=== PATIENT | female | born 1995 | race Caucasian/White ===

== ENCOUNTER 2019-03-13 07:29 | Inpatient (IN) | payer OTHER ==
[~2019-03-13] VITALS: Ht 170.2 cm; Wt 64.9 kg
[2019-03-13] MEDS ORDERED: PRENATAL MULTI1 EAC3 PO (15:57)
== END 2019-03-15 11:45 | disposition home or self-care (01) | DRG 807 ==
LOC: OB/GYN 07:29 → LDR 07:29 → OB/GYN 16:30
PROVIDERS: ADMIT Specialist
PROC: 10E0XZZ Delivery of Products of Conception, External Approach (ICD-10-PCS; principal; 2019-03-13)
PROC: 10907ZC Drainage of Amniotic Fluid, Therapeutic from Products of Conception, Via Natural or Artificial Opening (ICD-10-PCS; 2019-03-13)
PROC: 3E033VJ Introduction of Other Hormone into Peripheral Vein, Percutaneous Approach (ICD-10-PCS; 2019-03-13)
PROC: 4A1HXCZ Monitoring of Products of Conception, Cardiac Rate, External Approach (ICD-10-PCS; 2019-03-13)
DX: O80 Encounter for full-term uncomplicated delivery (principal); Z37.0 Single live birth; Z3A.39 39 weeks gestation of pregnancy

== ENCOUNTER 2021-10-06 13:38 | Outpatient (CLI) | payer OTHER ==
[~2021-10-06 13:38] MED LIST: PRENATAL MULTI1 EAC3 PO
== END 2021-10-06 13:40 | disposition home or self-care (01) ==
LOC: LAB 13:38
PROVIDERS: ATTEND Specialist
DX: Z34.80 Encounter for supervision of other normal pregnancy, unspecified trimester (principal)

== ENCOUNTER 2021-10-26 11:04 | Inpatient (IN) | payer OTHER ==
[~2021-10-26] VITALS: Ht 157.5 cm; Wt 63.5 kg
== END 2021-10-28 14:23 | disposition home or self-care (01) | DRG 807 ==
LOC: LDR 11:04 → OB/GYN 11:04
PROVIDERS: ADMIT Specialist; ATTEND Specialist
PROC: 10E0XZZ Delivery of Products of Conception, External Approach (ICD-10-PCS; principal; 2021-10-26)
PROC: 4A1HXCZ Monitoring of Products of Conception, Cardiac Rate, External Approach (ICD-10-PCS; 2021-10-26)
DX: O99.820 Streptococcus B carrier state complicating pregnancy (principal); Z3A.38 38 weeks gestation of pregnancy; Z37.0 Single live birth; Z20.822 Contact with and (suspected) exposure to COVID-19

== ENCOUNTER 2024-10-20 13:35 | Outpatient (CLI) | payer OTHER ==
[2024-10-20 13:12] VITALS: BP 126/78
[2024-10-20] MEDS ORDERED: RINGERS SOLUTION,LACTATED 1,000 ML IV SCH (14:00)
[2024-10-20 14:30] LABS: URINE APPEARANCE Turbid; URINE BILIRRUBIN Negative (NEGATIVE); URINE BLOOD NHT; URINE COLOR Yellow; URINE GLUCOSE Negative (NEGATIVE); URINE KETONE Negative (NEGATIVE); URINE LEUKOCYTE Negative; URINE NITRATE Negative; URINE PROTEIN Negative (NEGATIVE); URINE UROBILINOGEN 1.0 E.U./dl
[2024-10-20 14:31] LABS: URINE BACTERIA 73.1 uL (0.0-1933); URINE EPITHELIAL CELLS 9.8 uL (0.0-38.8); URINE RBC 49.1 uL (0.0-20.8); URINE WBC 10.5 uL (0.0-23.2)
[2024-10-20 14:35] LABS: BASO % 0.2 % (0.1-1.2); EOS # 0.15 (0.04-0.54); EOS % 1.8 % (0.7-7.0); LYMPH # 1.28 (1.18-3.74); LYMPH % 15.5 % (19.3-53.1); MEAN PLATELET VOLUME 10.40 fl (9.4-12.4); MONO # 0.61 (0.24-0.82); MONO % 7.4 % (4.7-12.5); NEUT # 6.18 (1.56-6.13); NEUT % 74.7 % (34.0-71.1); RED CELL DISTRIBUTION WIDTH 13.3 % (11.6-14.4); URINE CAST 0.00 uL (0.0-1.40)
[2024-10-20 14:49] LABS: INR < 0.93
[2024-10-20 15:24] VITALS: BP 123/75
[2024-10-20 19:33] VITALS: BP 112/64
[2024-10-20 23:20] VITALS: BP 119/67; O2SAT 98
[2024-10-21 03:09] VITALS: BP 113/64; O2SAT 96
[2024-10-21 07:39] VITALS: BP 112/71; O2SAT 97
[2024-10-21 10:46] VITALS: BP 112/71
== END 2024-10-21 10:51 | disposition home or self-care (01) ==
LOC: OBS/DEL 13:35
PROVIDERS: Obstetrics & Gynecology; ATTEND Specialist
DX: O26.893 Other specified pregnancy related conditions, third trimester (principal); N93.0 Postcoital and contact bleeding; O44.00 Complete placenta previa NOS or without hemorrhage, unspecified trimester; O36.8199 Decreased fetal movements, unspecified trimester, other fetus; O26.859 Spotting complicating pregnancy, unspecified trimester; Z3A.29 29 weeks gestation of pregnancy

== ENCOUNTER 2024-12-02 22:10 | Inpatient (IN) | payer OTHER ==
[~2024-12-02] VITALS: Ht 167.6 cm; Wt 59.9 kg
[2024-12-02 22:10] VITALS: BP 116/76
[2024-12-02] MEDS ORDERED: AMPICILLIN SODIUM 2,000 MG VIAL IV ONE (22:15)
[2024-12-02] MEDS ORDERED: BETAMETHASONE ACETATE,SOD PHOS 30 MG/5 ML ML IM ONE (22:15)
[2024-12-02] MEDS ORDERED: RINGERS SOLUTION,LACTATED 1,000 ML IV SCH (22:15)
[2024-12-02 23:19] VITALS: BP 123/78
[2024-12-02 23:53] LABS: BASO % 0.3 % (0.1-1.2); EOS # 0.12 (0.04-0.54); EOS % 1.3 % (0.7-7.0); LYMPH # 1.66 (1.18-3.74); LYMPH % 17.7 % (19.3-53.1); MEAN PLATELET VOLUME 10.90 fl (9.4-12.4); MONO # 0.60 (0.24-0.82); MONO % 6.4 % (4.7-12.5); NEUT # 6.92 (1.56-6.13); NEUT % 73.9 % (34.0-71.1); RED CELL DISTRIBUTION WIDTH 13.1 % (11.6-14.4)
[2024-12-03] VITALS (9 sets, daily range): BP systolic 104–143; BP diastolic 60–83; O2SAT 97
[2024-12-03 00:13] LABS: INR < 0.93
[2024-12-03 00:16] LABS: ALT/SGPT 15.0 U/L (12-78); AST/SGOT 22.0 U/L (15-37); BILIRUBIN TOTAL 0.46 mg/dL (0.3-1.2); BUN CREA RATIO 22.0 (7.0-25.0); CREATININE SERUM 0.36 mg/dL (0.55-1.02); GFR 214.63; GLOBULINA 3.7 G/DL (2.4-3.5); GLUCOSE FASTING 67.0 mg/dL (65-100); OSMOLALITY SERUM 274.0 MOSM/KG (275-295)
[2024-12-03] MEDS ORDERED: AMPICILLIN SODIUM 1,000 MG VIAL IV SCH (01:00)
[2024-12-03 05:00] LABS: URINE APPEARANCE Clear; URINE BILIRRUBIN Negative (NEGATIVE); URINE BLOOD Moderate; URINE COLOR Yellow; URINE GLUCOSE Negative (NEGATIVE); URINE LEUKOCYTE Moderate; URINE NITRATE Negative; URINE PROTEIN Negative (NEGATIVE); URINE UROBILINOGEN 0.2 E.U./dl
[2024-12-03 05:19] LABS: URINE KETONE 40 (NEGATIVE)
[2024-12-03 05:20] LABS: URINE BACTERIA MODERATE; URINE EPITHELIAL CELLS 0-4 /HPF; URINE RBC 0-3 /HPF; URINE WBC 21-30 /hpf
[2024-12-03] MEDS ORDERED: BETAMETHASONE ACETATE,SOD PHOS 30 MG/5 ML ML IM NR (10:50)
[2024-12-03] MEDS ORDERED: CHLORHEXIDINE GLUCONATE 120 ML BOTTLE TOP SCH (11:15)
[2024-12-03] MEDS ORDERED: OXYTOCIN 1,000 ML IV SCH (11:15)
[2024-12-03] MEDS ORDERED: FF) RHO(D) IMMUNE GLOBULIN (POM) IM NR (11:15)
[2024-12-03] MEDS ORDERED: OXYTOCIN 10 UNITS/ML VIAL IM STA (11:15)
[2024-12-03] MEDS ORDERED: ERYTHROMYCIN BASE OPHT 1GM EACH TUBE OP ONE (11:30)
[2024-12-03 15:07] LABS: BASO % 0.1 % (0.1-1.2); EOS # 0.00 (0.04-0.54); EOS % 0.0 % (0.7-7.0); LYMPH # 0.93 (1.18-3.74); LYMPH % 5.3 % (19.3-53.1); MEAN PLATELET VOLUME 11.00 fl (9.4-12.4); MONO # 0.78 (0.24-0.82); MONO % 4.5 % (4.7-12.5); NEUT # 15.58 (1.56-6.13); NEUT % 89.6 % (34.0-71.1); RED CELL DISTRIBUTION WIDTH 12.8 % (11.6-14.4)
[2024-12-04 00:17] VITALS: BP 124/72
[2024-12-04 08:13] VITALS: BP 116/76
[2024-12-04 16:38] VITALS: BP 125/81
[2024-12-05] VITALS: BP 133/79
[2024-12-05 08:20] VITALS: BP 108/66
== END 2024-12-05 13:01 | disposition home or self-care (01) | DRG 807 ==
LOC: LDR 22:10 → OB/GYN 22:10 → LDR 12-03 08:12 → OB/GYN 12-03 10:41
PROVIDERS: Obstetrics & Gynecology; ADMIT Specialist; ATTEND Specialist
PROC: BY4FZZZ Ultrasonography of Third Trimester, Single Fetus (ICD-10-PCS; 2024-12-02)
PROC: 4A1HXCZ Monitoring of Products of Conception, Cardiac Rate, External Approach (ICD-10-PCS; 2024-12-02)
PROC: 10E0XZZ Delivery of Products of Conception, External Approach (ICD-10-PCS; principal; 2024-12-04)
PROC: 0W8NXZZ Division of Female Perineum, External Approach (ICD-10-PCS; 2024-12-04)
DX: O60.14X0 Preterm labor third trimester with preterm delivery third trimester, not applicable or unspecified (principal); Z37.0 Single live birth; Z3A.35 35 weeks gestation of pregnancy